=== PATIENT | male | born 1955 | race Caucasian/White ===

== ENCOUNTER 2017-01-21 06:37 | Emergency (ER) | payer BC ==
[~2017-01-21] VITALS: Ht 185.4 cm; Wt 97.7 kg
[2017-01-21 06:40] VITALS: TEMP 99.5
[2017-01-21] MEDS ORDERED: DIOVAN HCT 12.51 TA2 PO (07:03)
[2017-01-21] MEDS ORDERED: AMBIEN 10MG10 MG PO (07:03)
[2017-01-21 07:57] LABS: ALBUMIN 4.4 gm/dL (3.5-5.0); BILIRUBIN,TOTAL 1.1 mg/dL (0.0-1.0); CALCIUM 9.3 mg/dL (8.4-10.2); CREATININE, serum 0.93 mg/dL (0.66-1.25); TOTAL PROTEIN 7.5 gm/dL (6.4-8.2); URIC ACID 6.2 mg/dL (3.5-8.5)
[2017-01-21 07:58] LABS: BASO % 0.3 % (0.0-2.0); EOS # 0.1 (0.0-0.7); EOS % 1.1 % (0-4.0); GRAN # 10.5 (1.4-6.5); GRAN % 81.3 % (42.2-75.2); HEMATOCRIT 42.9 % (42.0-52.0); HEMOGLOBIN 14.7 g/dl (13.5-18.0); LYMPH # 0.9 (1.2-3.4); LYMPH % 6.6 % (20.0-51.0); MEAN CELL VOLUME 95 fl (80.0-100.0); MEAN CORPUSCULAR HEMOGLOBIN 33 pg (27.0-31.0); MEAN CORPUSCULAR HGB CONC 34 g/dl (33.0-37.0); MEAN PLATELET VOLUME 10.1 fl (7.4-10.4); MONO # 1.3 (0.1-0.6); MONO % 9.9 % (1.7-9.3); PLATELET COUNT 255 K/mm3 (130-400); RED BLOOD COUNT 4.52 M/mm3 (4.20-5.60); WHITE BLOOD COUNT 12.9 K/mm3 (4.8-10.8)
[2017-01-21 09:46] LABS: SYNOVIAL FLUID RBC 0 /mm3 (0-0); SYNOVIAL FLUID WBC 3819 /mm3 (200-600)
[2017-01-21] MEDS ORDERED: NORCO 325 MG-51 TAB PO (10:12)
[2017-01-21] MEDS ORDERED: NAPROSYN500 MG PO (10:12)
[2017-01-21 11:04] VITALS: BP 125/66; PULSE 76
[2017-01-22 09:30] LABS: SYNOVIAL FLUID COLOR YELLOW
[2017-01-22 09:31] LABS: SYNOVIAL FLUID APPEARANCE HAZY
== END 2017-01-21 11:04 | disposition home or self-care (01) ==
LOC: COL.ER 06:37
PROVIDERS: Physician Assistant
DX: M17.11 Unilateral primary osteoarthritis, right knee (principal); I10 Essential (primary) hypertension; G47.00 Insomnia, unspecified
CPT/HCPCS: J1885; J2405; J3010